=== PATIENT | male | born 2000 | race Caucasian/White ===

== ENCOUNTER 2022-02-09 14:36 | Emergency (ER) | payer BC, SELFPAY ==
[2022-02-09 14:45] VITALS: BP 145/81; PULSE 96; RESP 16; TEMP 37.2; O2SAT 97
--- NOTE | 2022-02-09 15:41 | ED.GENADULT ---
HPI - General Adult General Chief complaint: Upper Respiratory Infection Stated complaint: flu symptoms/wants immune suppressant Source: patient Mode of arrival: ambulatory Limitations: no limitations History of Present Illness HPI narrative: Patient presents for evaluation of sick symptoms for last few days. Symptoms include runny nose, sinus congestion, mucopurulent discharge from the nares, nausea, dry heaves and subjective fever. He denies objective fever, chills, diarrhea, cough, shortness of breath. No recent sick contacts to his knowledge. He has never had COVID in the past. He did receive COVID vaccination. He recently started Tremfya for psoriasis and was told that he may be immunosuppressed. No additional complaints or concerns. Related Data Home Medications Medication Instructions Recorded Confirmed guselkumab 100 mg/mL subcutaneous 100 mg subcut .Q 8 WEEKS 02/09/22 02/09/22 auto-injector (Tremfya) Allergies Allergy/AdvReac Type Severity Reaction Status Date / Time No Known Allergies Allergy Verified 02/09/22 15:03 Review of Systems Review of Systems: CONSTITUTIONAL: Reports subjective fever. Denies objective fever chills, or sweats. EYES: Denies visual changes, redness, or discharge. ENT: Reports sinus congestion, mucopurulent nasal drainage, bilateral otalgia. Denies sore throat. CARDIOVASCULAR: Denies chest pain, palpitations, or edema. RESPIRATORY: Denies cough or dyspnea. GASTROINTESTINAL: Reports nausea and dry heaves. Denies abdominal pain, vomiting, or diarrhea. GENITOURINARY: Denies dysuria or hematuria. SKIN: Reports chronic psoriatic skin problems MUSCULOSKELETAL: Denies back pain, joint pain, or myalgia. NEUROLOGIC: Denies headache, numbness, dizziness, or weakness. PSYCHIATRIC: Denies anxiety or depression. [facility] Past Medical History Medical History Psoriasis Surgical History Surgical History History of tonsillectomy and adenoidectomy (~05/2019) Family History Family History Mother Family history non-contributory Social History Social History (Updated 02/09/22 @ 15:44 by Jefferson Cabrera, [facility], ) Social History: Single Smoking status: Never smoker Alcohol intake: never Substance use: never Substance use type: does not use Additional living arrangements comments: Lives with girlfriend Gender identity (if verbalized by the patient): Male Sexual Orientation (if Verbalized by the Patient): Straight or Heterosexual Spiritual care concerns: No Exam Narrative: GENERAL: Well-appearing, well-nourished, and in no acute distress. HEAD: Normocephalic, atraumatic. EYES: PERRLA and EOMI. ENT: Nares clear, no rhinorrhea or epistaxis. Mucous membranes moist. Oropharynx without tonsillar hypertrophy exudate or other lesions. Bilateral TMs pearly bai nonbulging NECK: Supple. No adenopathy or masses. No carotid bruits or JVD CHEST: Clear to auscultation. No respiratory distress. No wheezes rales or rhonchi HEART: Regular rate and rhythm. No murmur heard. Normal peripheral pulses. ABDOMEN: Soft, nontender, nondistended, normal active bowel sounds. EXTREMITIES: Normal range of motion. No edema. SKIN: Psoriatic plaques noted to face and neck NEURO: No focal deficits. Alert and oriented x3. PSYCH: Normal mood and affect. Course Course Emergency Course: This is a 21-year-old male that presented for evaluation of sinus symptoms. He meets criteria for ABRS based on fever and mucopurulent discharge from his nares. Will treat with Augmentin Afrin. Follow up with primary outpatient. Call Dermatology regarding sick symptoms while on Tremfya. Go to the ER for worsening symptoms. Patient in agreement with care plan Level of Care: Express Care Visit Vital Signs Vital signs:
== END 2022-02-09 16:36 | disposition home or self-care (01) ==
PROVIDERS: Emergency Provider Nurse Practitioner; PCP Emergency Medicine
DX: J32.9 Chronic sinusitis, unspecified (principal); Z20.822 Contact with and (suspected) exposure to COVID-19; L40.9 Psoriasis, unspecified
CPT/HCPCS: 87426; 87804; 99213; C9803; G0463